=== PATIENT | female | born 1935 | race Caucasian/White ===

== ENCOUNTER 2016-12-16 02:58 | Emergency (ER) | payer MEDICARE ==
[~2016-12-16] VITALS: Ht 154.9 cm; Wt 79.1 kg
[~2016-12-16 02:58] MED LIST: ALBU8.5H IH; AMIO200T44 PO; APIX5TAB PO; ASPI-1093 PO; ATOR40TA28 PO; CHOL200016 PO; FURO40 PO; KDUR10 PO; LEVAHFA IH; LISI-662 PO; METO-325 PO; PRED20 PO; UBID400C6 PO; VITA400T7 PO; [UNRECOGNIZED DRUG - CODE] PO
[2016-12-16 04:01] LABS: BASOPHILS % (AUTO) 0.2 % (0.0-2.0); EOSINOPHILS % (AUTO) 0.5 % (1.0-6.0); HEMATOCRIT 41.1 % (36-46); HEMOGLOBIN 13.1 g/dL (12.0-16.0); LYMPHOCYTES # (AUTO) 1.7 K/uL (1.0-4.8); LYMPHOCYTES % (AUTO) 17.5 % (22.0-44.0); MEAN CORPUSCULAR HGB CONC 31.9 G/dL (31.0-37.0); MEAN CORPUSCULAR VOLUME 94 fL (80-100); MONOCYTES # (AUTO) 0.6 K/uL (0.1-1.0); MONOCYTES % (AUTO) 6.6 % (2.0-9.0); NEUTROPHILS # (AUTO) 7.4 K/uL (1.8-7.7); NEUTROPHILS % (AUTO) 75.2 % (40.0-70.0); PLATELET COUNT (AUTO) 202 K/uL (150-450); RED BLOOD CELL COUNT(AUTO) 4.36 MIL/uL (4.00-5.20); RED CELL DISTRIBUTION WIDTH 16.1 % (11.5-14.5); WHITE BLOOD COUNT (AUTO) 9.8 K/uL (4.5-11.0)
[2016-12-16 04:11] LABS: CALCIUM, TOTAL 8.6 mg/dL (8.8-10.5); CREATININE 0.95 mg/dL (0.60-1.30); POTASSIUM 3.4 mmol/L (3.5-5.1)
[2016-12-16 04:17] LABS: ALBUMIN 3.4 g/dL (3.4-5.0); BILIRUBIN,TOTAL 0.5 mg/dL (0.1-1.0); TOTAL PROTEIN, SERUM 6.6 g/dL (6.4-8.2)
[2016-12-16 05:51] VITALS: BP 119/69
== END 2016-12-16 06:14 | disposition home or self-care (01) ==
LOC: EMS 02:59
DX: I11.0 Hypertensive heart disease with heart failure (principal); I50.9 Heart failure, unspecified; F41.9 Anxiety disorder, unspecified; I25.10 Atherosclerotic heart disease of native coronary artery without angina pectoris; E11.9 Type 2 diabetes mellitus without complications; E78.00 Pure hypercholesterolemia, unspecified; Z88.0 Allergy status to penicillin; Z91.013 Allergy to seafood; Z91.018 Allergy to other foods
CPT/HCPCS: 93005; 99285

== ENCOUNTER 2017-03-30 18:08 | Inpatient (IN) | payer MEDICARE ==
[~2017-03-30] VITALS: Ht 165.1 cm; Wt 83.7 kg
[2017-03-30] MEDS ORDERED: SPIR25 PO (18:31)
[2017-03-30] MEDS ORDERED: LEVO25TA9 PO (18:31)
[2017-03-30 18:32] LABS: GLUCOSE,POINT OF CARE 183 MG/DL (70-110)
[2017-03-30 19:26] LABS: BASOPHILS % (AUTO) 0.4 % (0.0-2.0); EOSINOPHILS % (AUTO) 0.2 % (1.0-6.0); HEMATOCRIT 39.1 % (36-46); HEMOGLOBIN 12.1 g/dL (12.0-16.0); LYMPHOCYTES # (AUTO) 0.7 K/uL (1.0-4.8); LYMPHOCYTES % (AUTO) 8.5 % (22.0-44.0); MEAN CORPUSCULAR HEMOGLOBIN 27.8 pg (26.0-34.0); MEAN CORPUSCULAR VOLUME 90 fL (80-100); MONOCYTES # (AUTO) 0.8 K/uL (0.1-1.0); MONOCYTES % (AUTO) 9.7 % (2.0-9.0); NEUTROPHILS # (AUTO) 6.9 K/uL (1.8-7.7); NEUTROPHILS % (AUTO) 81.2 % (40.0-70.0); PLATELET COUNT (AUTO) 162 K/uL (150-450); RED BLOOD CELL COUNT(AUTO) 4.37 MIL/uL (4.00-5.20); RED CELL DISTRIBUTION WIDTH 16.9 % (11.5-14.5); WHITE BLOOD COUNT (AUTO) 8.5 K/uL (4.5-11.0)
[2017-03-30 19:42] LABS: CREATININE 1.39 mg/dL (0.60-1.30); POTASSIUM 5.2 mmol/L (3.5-5.1)
[2017-03-30 19:46] LABS: ALBUMIN 3.7 g/dL (3.4-5.0); BILIRUBIN,TOTAL 0.6 mg/dL (0.1-1.0); TOTAL PROTEIN, SERUM 7.2 g/dL (6.4-8.2)
[2017-03-30] MEDS ORDERED: FUROSEMIDE 40 MG/4 ML VIAL IVP ONE (22:15)
[2017-03-30] MEDS ORDERED: ACETAMINOPHEN 325 MG TABLET PO PRN (23:30)
[2017-03-30] MEDS ORDERED: ONDANSETRON HCL 4 MG/2 ML VIAL IVP PRN (23:30)
[2017-03-30] MEDS ORDERED: NITROGLYCERIN 2% (1 GM=INCH) PACKET TP ONE (23:30)
[2017-03-30] MEDS ORDERED: 0.9% SODIUM CHLORIDE 10 ML SYRINGE IVP PRN (23:30)
[2017-03-31] VITALS (7 sets, daily range): BP systolic 100–119; BP diastolic 50–59
[2017-03-31] MEDS ORDERED: PNEUMOCOCCAL VACCINE POLYVALENT 0.5 ML VIAL [PPSV23] IM ONE (03:30)
[2017-03-31 06:58] LABS: BASOPHILS % (AUTO) 0.4 % (0.0-2.0); EOSINOPHILS % (AUTO) 0 % (1.0-6.0); HEMATOCRIT 36.8 % (36-46); HEMOGLOBIN 11.6 g/dL (12.0-16.0); LYMPHOCYTES # (AUTO) 0.8 K/uL (1.0-4.8); LYMPHOCYTES % (AUTO) 9.5 % (22.0-44.0); MEAN CORPUSCULAR HEMOGLOBIN 28.1 pg (26.0-34.0); MEAN CORPUSCULAR HGB CONC 31.5 G/dL (31.0-37.0); MEAN CORPUSCULAR VOLUME 89 fL (80-100); MONOCYTES % (AUTO) 11.3 % (2.0-9.0); NEUTROPHILS # (AUTO) 6.7 K/uL (1.8-7.7); NEUTROPHILS % (AUTO) 78.8 % (40.0-70.0); PLATELET COUNT (AUTO) 145 K/uL (150-450); RED BLOOD CELL COUNT(AUTO) 4.13 MIL/uL (4.00-5.20); RED CELL DISTRIBUTION WIDTH 17.5 % (11.5-14.5); WHITE BLOOD COUNT (AUTO) 8.5 K/uL (4.5-11.0)
[2017-03-31 07:14] LABS: ALBUMIN 3.5 g/dL (3.4-5.0); BILIRUBIN,TOTAL 0.7 mg/dL (0.1-1.0); CALCIUM, TOTAL 8.6 mg/dL (8.8-10.5); CREATININE 1.33 mg/dL (0.60-1.30); POTASSIUM 4.1 mmol/L (3.5-5.1); TOTAL PROTEIN, SERUM 6.8 g/dL (6.4-8.2)
[2017-03-31] MEDS: IPRATROPIUM BROMIDE 0.5 MG/2.5 ML NEB SOLUTION NEB PRN (08:41)
[2017-03-31] MEDS: ALBUTEROL SULFATE 2.5 MG/0.5 ML NEB SOLUTION NEB SCH ×3 (08:41→21:26)
[2017-03-31] MEDS ORDERED: 0.9% SODIUM CHLORIDE 5 ML NEB SOLUTION NEB ONE (14:08)
[2017-03-31] MEDS ORDERED: HYDROCODONE/ACETAMINOPHEN 5-325 MG TABLET PO PRN (14:45)
[2017-03-31] MEDS ORDERED: DEXTROSE 50%-WATER 25 GM/50 ML SYRINGE IVP PRN (14:45)
[2017-03-31] MEDS ORDERED: AMIO200T44 PO (15:03)
[2017-03-31] MEDS ORDERED: SPIR25 PO (15:03)
[2017-03-31] MEDS ORDERED: NYST15PO4 TP (15:03)
[2017-03-31] MEDS: NYSTATIN 15 GM POWDER BOTTLE TP SCH (20:29)
[2017-03-31] MEDS: APIXABAN 5 MG TABLET PO SCH (20:29)
[2017-03-31] MEDS: FUROSEMIDE 40 MG/4 ML VIAL IVP SCH (20:29)
[2017-03-31] MEDS: INSULIN ASPART 100 UNITS/ML SQ PRN (20:56)
[2017-03-31] MEDS ORDERED: FUROSEMIDE 40 MG TABLET PO SCH (21:00)
[2017-04-01] VITALS (7 sets, daily range): BP systolic 101–130; BP diastolic 50–64
[2017-04-01] MEDS: IPRATROPIUM BROMIDE 0.5 MG/2.5 ML NEB SOLUTION NEB PRN ×2 (01:57→19:41)
[2017-04-01] MEDS: ALBUTEROL SULFATE 2.5 MG/0.5 ML NEB SOLUTION NEB SCH ×3 (01:57→19:41)
[2017-04-01] MEDS: LEVOTHYROXINE SODIUM 25 MCG TABLET PO SCH (05:58)
[2017-04-01 06:46] LABS: BASOPHILS % (AUTO) 0.3 % (0.0-2.0); EOSINOPHILS % (AUTO) 0.7 % (1.0-6.0); HEMATOCRIT 37.5 % (36-46); HEMOGLOBIN 11.8 g/dL (12.0-16.0); LYMPHOCYTES # (AUTO) 0.8 K/uL (1.0-4.8); LYMPHOCYTES % (AUTO) 8.7 % (22.0-44.0); MEAN CORPUSCULAR HEMOGLOBIN 28.3 pg (26.0-34.0); MEAN CORPUSCULAR HGB CONC 31.6 G/dL (31.0-37.0); MEAN CORPUSCULAR VOLUME 89 fL (80-100); MONOCYTES # (AUTO) 0.7 K/uL (0.1-1.0); MONOCYTES % (AUTO) 8.5 % (2.0-9.0); NEUTROPHILS # (AUTO) 7.2 K/uL (1.8-7.7); NEUTROPHILS % (AUTO) 81.8 % (40.0-70.0); PLATELET COUNT (AUTO) 141 K/uL (150-450); RED BLOOD CELL COUNT(AUTO) 4.19 MIL/uL (4.00-5.20); RED CELL DISTRIBUTION WIDTH 17.8 % (11.5-14.5); WHITE BLOOD COUNT (AUTO) 8.8 K/uL (4.5-11.0)
[2017-04-01 07:18] LABS: CALCIUM, TOTAL 8.6 mg/dL (8.8-10.5); CREATININE 1.23 mg/dL (0.60-1.30); MAGNESIUM 1.9 mg/dL (1.80-2.40); POTASSIUM 3.9 mmol/L (3.5-5.1)
[2017-04-01] MEDS ORDERED: 0.9% SODIUM CHLORIDE 5 ML NEB SOLUTION NEB ONE ×2 (07:40→13:32)
[2017-04-01] MEDS: FUROSEMIDE 40 MG/4 ML VIAL IVP SCH ×2 (08:14→21:39)
[2017-04-01] MEDS: POTASSIUM CHLORIDE 10 MEQ ER TABLET PO SCH (08:14)
[2017-04-01] MEDS: APIXABAN 5 MG TABLET PO SCH ×2 (08:14→21:39)
[2017-04-01] MEDS: AMIODARONE HCL 200 MG TABLET PO SCH (08:14)
[2017-04-01] MEDS: UBIDECARENONE 100 MG CAPSULE PO SCH (08:15)
[2017-04-01] MEDS: CHOLECALCIFEROL (VIT D3) 2,000 UNITS TABLET PO SCH (08:15)
[2017-04-01] MEDS: SPIRONOLACTONE 25 MG TABLET PO SCH (08:15)
[2017-04-01] MEDS: LISINOPRIL 20 MG TABLET PO SCH (08:15)
[2017-04-01] MEDS: CYANOCOBALAMIN 500 MCG TABLET PO SCH (08:18)
[2017-04-01] MEDS: NYSTATIN 15 GM POWDER BOTTLE TP SCH ×2 (08:27→21:40)
[2017-04-01] MEDS: VITAMIN E 400 UNITS CAPSULE PO SCH (08:27)
[2017-04-01] MEDS: INSULIN ASPART 100 UNITS/ML SQ PRN ×2 (11:37→21:54)
[2017-04-01] MEDS: HYDROCODONE/ACETAMINOPHEN 5-325 MG TABLET PO PRN ×2 (12:57→21:39)
[2017-04-02] MEDS: ALBUTEROL SULFATE 2.5 MG/0.5 ML NEB SOLUTION NEB SCH ×4 (02:23→20:05)
[2017-04-02] MEDS ORDERED: 0.9% SODIUM CHLORIDE 5 ML NEB SOLUTION NEB ONE ×3 (02:23→14:33)
[2017-04-02 04:15] VITALS: BP 102/50
[2017-04-02] MEDS: LEVOTHYROXINE SODIUM 25 MCG TABLET PO SCH (06:04)
[2017-04-02 06:38] LABS: BASOPHILS % (AUTO) 0.3 % (0.0-2.0); EOSINOPHILS % (AUTO) 1.2 % (1.0-6.0); HEMATOCRIT 35.7 % (36-46); HEMOGLOBIN 11.1 g/dL (12.0-16.0); LYMPHOCYTES # (AUTO) 0.7 K/uL (1.0-4.8); LYMPHOCYTES % (AUTO) 9.1 % (22.0-44.0); MEAN CORPUSCULAR HEMOGLOBIN 27.7 pg (26.0-34.0); MEAN CORPUSCULAR VOLUME 89 fL (80-100); MONOCYTES # (AUTO) 0.7 K/uL (0.1-1.0); MONOCYTES % (AUTO) 9.4 % (2.0-9.0); NEUTROPHILS # (AUTO) 6.3 K/uL (1.8-7.7); PLATELET COUNT (AUTO) 133 K/uL (150-450); RED CELL DISTRIBUTION WIDTH 18.1 % (11.5-14.5); WHITE BLOOD COUNT (AUTO) 7.8 K/uL (4.5-11.0)
[2017-04-02 06:54] LABS: ALANINE AMINOTRANSFERASE 35 U/L (12-78); ALBUMIN 3.3 g/dL (3.4-5.0); ANION GAP 9 mmol/L (8-16); ASPARTATE AMINOTRANSFERASE 34 U/L (15-37); BILIRUBIN,TOTAL 0.8 mg/dL (0.1-1.0); CALCIUM, TOTAL 8.5 mg/dL (8.8-10.5); CARBON DIOXIDE 27 mmol/L (22-29); CHLORIDE 100 mmol/L (98-107); CREATININE 1.31 mg/dL (0.60-1.30); GLOMERULAR FILTR. RATE CALC 39 mL/min (>60); POTASSIUM 4.1 mmol/L (3.5-5.1); SODIUM SERUM 136 mmol/L (136-145); TOTAL PROTEIN, SERUM 6.6 g/dL (6.4-8.2); UREA NITROGEN, BLOOD 39 mg/dL (7-18)
[2017-04-02 07:27] VITALS: BP 91/50
[2017-04-02] MEDS: AMIODARONE HCL 200 MG TABLET PO SCH (07:54)
[2017-04-02] MEDS: SPIRONOLACTONE 25 MG TABLET PO SCH (07:54)
[2017-04-02] MEDS: APIXABAN 5 MG TABLET PO SCH ×2 (07:54→20:40)
[2017-04-02] MEDS: CHOLECALCIFEROL (VIT D3) 2,000 UNITS TABLET PO SCH (07:55)
[2017-04-02] MEDS: NYSTATIN 15 GM POWDER BOTTLE TP SCH ×2 (07:55→20:40)
[2017-04-02] MEDS: UBIDECARENONE 100 MG CAPSULE PO SCH (07:55)
[2017-04-02] MEDS: CYANOCOBALAMIN 500 MCG TABLET PO SCH (07:55)
[2017-04-02] MEDS: LISINOPRIL 20 MG TABLET PO SCH (07:55)
[2017-04-02] MEDS: POTASSIUM CHLORIDE 10 MEQ ER TABLET PO SCH (07:55)
[2017-04-02] MEDS: VITAMIN E 400 UNITS CAPSULE PO SCH (07:55)
[2017-04-02 08:47] LABS: DIGOXIN < 0.20 ng/mL (0.90-2.00)
[2017-04-02] MEDS: FUROSEMIDE 40 MG/4 ML VIAL IVP SCH ×2 (09:00→20:40)
[2017-04-02 11:33] VITALS: BP 98/58
[2017-04-02] MEDS: INSULIN ASPART 100 UNITS/ML SQ PRN ×2 (11:59→20:50)
[2017-04-02] MEDS ORDERED: 0.9% SODIUM CHLORIDE 10 ML SYRINGE IVP PRN (12:15)
[2017-04-02] MEDS: HYDROCODONE/ACETAMINOPHEN 5-325 MG TABLET PO PRN (13:06)
[2017-04-02 13:38] LABS: GLUCOSE,POINT OF CARE 127 MG/DL (70-110)
[2017-04-02 13:38] LABS: GLUCOSE,POINT OF CARE 98 MG/DL (70-110)
[2017-04-02 13:38] LABS: GLUCOSE,POINT OF CARE 139 MG/DL (70-110)
[2017-04-02 13:38] LABS: GLUCOSE COMMENT 1 Received Meds; GLUCOSE,POINT OF CARE 206 MG/DL (70-110)
[2017-04-02 13:38] LABS: GLUCOSE COMMENT 1 Received Meds; GLUCOSE,POINT OF CARE 172 MG/DL (70-110)
[2017-04-02 13:42] LABS: GLUCOSE COMMENT 1 Received Meds; GLUCOSE,POINT OF CARE 170 MG/DL (70-110)
[2017-04-02 13:42] LABS: GLUCOSE,POINT OF CARE 107 MG/DL (70-110)
[2017-04-02 13:42] LABS: GLUCOSE COMMENT 1 Received Meds; GLUCOSE,POINT OF CARE 147 MG/DL (70-110)
[2017-04-02 15:11] VITALS: BP 114/53
[2017-04-02 19:33] VITALS: BP 102/50
[2017-04-02] MEDS: IPRATROPIUM BROMIDE 0.5 MG/2.5 ML NEB SOLUTION NEB PRN (20:05)
[2017-04-02 20:47] LABS: GLUCOSE,POINT OF CARE 134 MG/DL (70-110)
[2017-04-02 23:32] VITALS: BP 139/60
[2017-04-03] MEDS: ALBUTEROL SULFATE 2.5 MG/0.5 ML NEB SOLUTION NEB SCH ×4 (02:07→20:29)
[2017-04-03] MEDS: IPRATROPIUM BROMIDE 0.5 MG/2.5 ML NEB SOLUTION NEB PRN ×4 (02:07→20:29)
[2017-04-03 04:25] VITALS: BP 101/50
[2017-04-03] MEDS: LEVOTHYROXINE SODIUM 25 MCG TABLET PO SCH (06:21)
[2017-04-03 06:47] LABS: BASOPHILS % (AUTO) 0.3 % (0.0-2.0); EOSINOPHILS % (AUTO) 0 % (1.0-6.0); HEMOGLOBIN 11.7 g/dL (12.0-16.0); LYMPHOCYTES # (AUTO) 0.7 K/uL (1.0-4.8); MEAN CORPUSCULAR HEMOGLOBIN 28.2 pg (26.0-34.0); MEAN CORPUSCULAR HGB CONC 31.6 G/dL (31.0-37.0); MEAN CORPUSCULAR VOLUME 89 fL (80-100); MONOCYTES # (AUTO) 0.9 K/uL (0.1-1.0); MONOCYTES % (AUTO) 10.4 % (2.0-9.0); NEUTROPHILS # (AUTO) 7.1 K/uL (1.8-7.7); NEUTROPHILS % (AUTO) 81.3 % (40.0-70.0); PLATELET COUNT (AUTO) 150 K/uL (150-450); RED BLOOD CELL COUNT(AUTO) 4.15 MIL/uL (4.00-5.20); RED CELL DISTRIBUTION WIDTH 18.3 % (11.5-14.5); WHITE BLOOD COUNT (AUTO) 8.7 K/uL (4.5-11.0)
[2017-04-03 07:04] LABS: CALCIUM, TOTAL 8.9 mg/dL (8.8-10.5); CREATININE 1.25 mg/dL (0.60-1.30); MAGNESIUM 2.1 mg/dL (1.80-2.40); POTASSIUM 4.5 mmol/L (3.5-5.1)
[2017-04-03 07:47] VITALS: BP 110/55
[2017-04-03] MEDS: POTASSIUM CHLORIDE 10 MEQ ER TABLET PO SCH (07:52)
[2017-04-03] MEDS: SPIRONOLACTONE 25 MG TABLET PO SCH (07:52)
[2017-04-03] MEDS: APIXABAN 5 MG TABLET PO SCH ×2 (07:52→21:02)
[2017-04-03] MEDS: CYANOCOBALAMIN 500 MCG TABLET PO SCH (07:52)
[2017-04-03] MEDS: CHOLECALCIFEROL (VIT D3) 2,000 UNITS TABLET PO SCH (07:53)
[2017-04-03] MEDS: UBIDECARENONE 100 MG CAPSULE PO SCH (07:53)
[2017-04-03] MEDS: HYDROCODONE/ACETAMINOPHEN 5-325 MG TABLET PO PRN ×2 (07:53→21:12)
[2017-04-03] MEDS: VITAMIN E 400 UNITS CAPSULE PO SCH (07:53)
[2017-04-03] MEDS: AMIODARONE HCL 200 MG TABLET PO SCH (07:53)
[2017-04-03] MEDS: NYSTATIN 15 GM POWDER BOTTLE TP SCH ×2 (08:01→21:00)
[2017-04-03] MEDS: LISINOPRIL 20 MG TABLET PO SCH (08:01)
[2017-04-03] MEDS: FUROSEMIDE 40 MG/4 ML VIAL IVP SCH ×2 (08:42→21:02)
[2017-04-03 09:35] LABS: RBC MORPHOLOGY COMMENT ABNORMAL RBC MORPH
[2017-04-03 11:03] VITALS: BP 105/52
[2017-04-03 12:49] LABS: GLUCOSE,POINT OF CARE 130 MG/DL (70-110)
[2017-04-03 12:49] LABS: GLUCOSE,POINT OF CARE 111 MG/DL (70-110)
[2017-04-03 12:49] LABS: GLUCOSE COMMENT 1 Received Meds; GLUCOSE,POINT OF CARE 149 MG/DL (70-110)
[2017-04-03 15:18] VITALS: BP 107/56
[2017-04-03 19:41] VITALS: BP 113/58
[2017-04-03] MEDS: INSULIN ASPART 100 UNITS/ML SQ PRN (21:13)
[2017-04-04 00:09] VITALS: BP 114/68
[2017-04-04] MEDS: IPRATROPIUM BROMIDE 0.5 MG/2.5 ML NEB SOLUTION NEB PRN ×2 (02:21→08:46)
[2017-04-04] MEDS: ALBUTEROL SULFATE 2.5 MG/0.5 ML NEB SOLUTION NEB SCH ×3 (02:21→14:08)
[2017-04-04 04:35] VITALS: BP 110/54
[2017-04-04] MEDS: LEVOTHYROXINE SODIUM 25 MCG TABLET PO SCH (06:34)
[2017-04-04 07:17] LABS: GLUCOSE,POINT OF CARE 132 MG/DL (70-110)
[2017-04-04 07:17] LABS: GLUCOSE COMMENT 1 Received Meds; GLUCOSE,POINT OF CARE 159 MG/DL (70-110)
[2017-04-04 07:17] LABS: GLUCOSE,POINT OF CARE 139 MG/DL (70-110)
[2017-04-04 07:25] VITALS: BP 107/58
[2017-04-04] MEDS: FUROSEMIDE 40 MG/4 ML VIAL IVP SCH (09:05)
[2017-04-04] MEDS: UBIDECARENONE 100 MG CAPSULE PO SCH (09:06)
[2017-04-04] MEDS: SPIRONOLACTONE 25 MG TABLET PO SCH (09:07)
[2017-04-04] MEDS: HYDROCODONE/ACETAMINOPHEN 5-325 MG TABLET PO PRN (09:07)
[2017-04-04] MEDS: APIXABAN 5 MG TABLET PO SCH (09:07)
[2017-04-04] MEDS: VITAMIN E 400 UNITS CAPSULE PO SCH (09:07)
[2017-04-04] MEDS: AMIODARONE HCL 200 MG TABLET PO SCH (09:07)
[2017-04-04] MEDS: CHOLECALCIFEROL (VIT D3) 2,000 UNITS TABLET PO SCH (09:08)
[2017-04-04] MEDS: LISINOPRIL 20 MG TABLET PO SCH (09:08)
[2017-04-04] MEDS: NYSTATIN 15 GM POWDER BOTTLE TP SCH (09:08)
[2017-04-04 11:20] VITALS: BP 122/70
[2017-04-04] MEDS: POTASSIUM CHLORIDE 10 MEQ ER TABLET PO SCH (11:24)
[2017-04-04] MEDS: CYANOCOBALAMIN 500 MCG TABLET PO SCH (11:25)
[2017-04-04] MEDS ORDERED: 0.9% SODIUM CHLORIDE 5 ML NEB SOLUTION NEB ONE (14:07)
[2017-04-04 15:16] VITALS: BP 114/52
[2017-04-04] MEDS ORDERED: AUD NEB (15:32)
[2017-04-04] MEDS ORDERED: HYDR-3965 PO ×2 (15:34→15:35)
[2017-04-04] MEDS ORDERED: INSNOV SQ (15:46)
[2017-04-04] MEDS ORDERED: IPRNEB IH (15:50)
[2017-04-04 16:52] LABS: GLUCOSE,POINT OF CARE 137 MG/DL (70-110)
== END 2017-04-04 18:55 | disposition home or self-care (01) | DRG 291 ==
LOC: EMS 18:12 → 5N 23:00
PROVIDERS: ADMIT Family Medicine; ATTEND Family Medicine
DX: I13.0 Hypertensive heart and chronic kidney disease with heart failure and stage 1 through stage 4 chronic kidney disease, or unspecified chronic kidney disease (principal); I50.43 Acute on chronic combined systolic (congestive) and diastolic (congestive) heart failure; N17.9 Acute kidney failure, unspecified; I11.0 Hypertensive heart disease with heart failure; I42.9 Cardiomyopathy, unspecified; I50.9 Heart failure, unspecified; I48.91 Unspecified atrial fibrillation; E78.5 Hyperlipidemia, unspecified; I25.10 Atherosclerotic heart disease of native coronary artery without angina pectoris; E78.00 Pure hypercholesterolemia, unspecified; E87.5 Hyperkalemia; M19.90 Unspecified osteoarthritis, unspecified site; I87.2 Venous insufficiency (chronic) (peripheral); I48.0 Paroxysmal atrial fibrillation; G47.00 Insomnia, unspecified; Z95.2 Presence of prosthetic heart valve; Z95.0 Presence of cardiac pacemaker; Z88.0 Allergy status to penicillin; Z91.013 Allergy to seafood; Z91.018 Allergy to other foods; Z79.899 Other long term (current) drug therapy; Z79.01 Long term (current) use of anticoagulants; Z90.49 Acquired absence of other specified parts of digestive tract; Z95.1 Presence of aortocoronary bypass graft; E11.9 Type 2 diabetes mellitus without complications; N18.3 Chronic kidney disease, stage 3 (moderate)
CPT/HCPCS: 82962; 83735; 93005; 93306; 94640; 96374; 97116; 97162; 97166; 97530; 99285; J1940

== ENCOUNTER 2017-08-15 00:21 | Inpatient (IN) | payer MEDICARE ==
[~2017-08-15] VITALS: Ht 162.6 cm; Wt 72.9 kg
[~2017-08-15 00:21] MED LIST changes: -ALBU8.5H IH; -ASPI-1093 PO; -ATOR40TA28 PO; +CYAN100010 PO; +HYDR-4061 PO; +IPRNEB IH; -LEVAHFA IH; +LEVO25TA9 PO; -METO-325 PO; +NYST15PO4 TP; -PRED20 PO; +SPIR25 PO; -[UNRECOGNIZED DRUG - CODE] PO
[2017-08-15 00:32] LABS: GLUCOSE,POINT OF CARE 150 MG/DL (70-110)
[2017-08-15] MEDS ORDERED: METO25 PO (00:33)
[2017-08-15] MEDS ORDERED: ASPI81 PO (00:33)
[2017-08-15] MEDS ORDERED: ATOR20TA86 PO (00:33)
[2017-08-15 00:53] LABS: EOSINOPHILS # (AUTO) 0.04 K/uL (0.00-0.70); EOSINOPHILS % (AUTO) 0.28 % (1.0-6.0); HEMATOCRIT 37.7 % (36-46); HEMOGLOBIN 12.3 g/dL (12.0-16.0); LYMPHOCYTES # (AUTO) 0.7 K/uL (1.0-4.8); LYMPHOCYTES % (AUTO) 4.9 % (22.0-44.0); MEAN CORPUSCULAR HEMOGLOBIN 30.1 pg (26.0-34.0); MEAN CORPUSCULAR HGB CONC 32.6 G/dL (31.0-37.0); MEAN CORPUSCULAR VOLUME 92 fL (80-100); MONOCYTES # (AUTO) 0.9 K/uL (0.1-1.0); MONOCYTES % (AUTO) 6.5 % (2.0-9.0); NEUTROPHILS # (AUTO) 11.9 K/uL (1.8-7.7); PLATELET COUNT (AUTO) 257 K/uL (150-450); RED BLOOD CELL COUNT(AUTO) 4.08 MIL/uL (4.00-5.20); RED CELL DISTRIBUTION WIDTH 18.4 % (11.5-14.5); WHITE BLOOD COUNT (AUTO) 13.5 K/uL (4.5-11.0)
[2017-08-15 00:55] LABS: NEUTROPHILS % (AUTO) 88.3 % (40.0-70.0)
[2017-08-15] MEDS ORDERED: SODIUM CHLORIDE 0.9% 1,000 ML IV ONE (01:00)
[2017-08-15] MEDS ORDERED: VANCOMYCIN HCL 1.5 GM in DEXTROSE 5%-WATER 250 ML IV ONE (01:00)
[2017-08-15 01:03] LABS: ANION GAP 11 mmol/L (8-16); CALCIUM, TOTAL 9.1 mg/dL (8.8-10.5); CARBON DIOXIDE 23 mmol/L (22-29); CHLORIDE 95 mmol/L (98-107); CREATININE 1.74 mg/dL (0.60-1.30); GLOMERULAR FILTR. RATE CALC 28 mL/min (>60); SODIUM SERUM 129 mmol/L (136-145); UREA NITROGEN, BLOOD 43 mg/dL (7-18)
[2017-08-15 01:09] LABS: ALANINE AMINOTRANSFERASE 36 U/L (12-78); ASPARTATE AMINOTRANSFERASE 36 U/L (15-37); BILIRUBIN,TOTAL 1.3 mg/dL (0.1-1.0); CREATINE KINASE, TOTAL 22 U/L (26-192); TOTAL PROTEIN, SERUM 8.2 g/dL (6.4-8.2)
[2017-08-15 01:12] LABS: RBC MORPHOLOGY COMMENT ABNORMAL RBC MORPH
[2017-08-15 01:17] LABS: B-TYPE NATRIURETIC PEPTIDE 4010 pg/mL (0-100)
[2017-08-15] MEDS ORDERED: 0.9% SODIUM CHLORIDE 10 ML SYRINGE IVP PRN (01:30)
[2017-08-15] MEDS ORDERED: ONDANSETRON HCL 4 MG/2 ML VIAL IVP PRN ×2 (01:30→07:00)
[2017-08-15] MEDS ORDERED: ACETAMINOPHEN 325 MG TABLET PO PRN (01:30)
[2017-08-15] MEDS ORDERED: FUROSEMIDE 40 MG/4 ML VIAL IVP ONE (01:30)
[2017-08-15 03:04] VITALS: BP 124/64
[2017-08-15 04:52] VITALS: BP 107/71
[2017-08-15 06:57] LABS: GLUCOSE, URINE (UA) NEGATIVE (NEGATIVE); KETONES,URINE NEGATIVE (NEGATIVE); LEUKOCYTE ESTERASE ,URINE NEGATIVE (NEGATIVE); PH,URINE 5.5 (5.0-8.0); PROTEIN,URINE NEGATIVE (NEGATIVE)
[2017-08-15] MEDS ORDERED: DEXTROSE 50%-WATER 25 GM/50 ML SYRINGE IVP PRN (07:00)
[2017-08-15 07:35] VITALS: BP 100/57
[2017-08-15 07:35] LABS: ADD UA MICROSCOPIC YES; APPEARANCE,URINE HAZY (CLEAR); OCCULT BLOOD,URINE SMALL (NEGATIVE)
[2017-08-15 07:36] LABS: AMORPHOUS SEDIMENT,UR Few /LPF (None Seen); SQUAMOUS EPITHELIAL CELL,UR Moderate /LPF (None Seen); WBC,URINE 0-2 /HPF (0-5)
[2017-08-15 08:06] LABS: BASOPHILS # (AUTO) 0.03 K/uL (0.00-0.20); BASOPHILS % (AUTO) 0.2 % (0.0-2.0); EOSINOPHILS # (AUTO) 0.03 K/uL (0.00-0.70); HEMATOCRIT 35.4 % (36-46); HEMOGLOBIN 11.6 g/dL (12.0-16.0); LYMPHOCYTES # (AUTO) 0.7 K/uL (1.0-4.8); LYMPHOCYTES % (AUTO) 5.2 % (22.0-44.0); MEAN CORPUSCULAR HEMOGLOBIN 30.1 pg (26.0-34.0); MEAN CORPUSCULAR HGB CONC 32.8 G/dL (31.0-37.0); MEAN CORPUSCULAR VOLUME 92 fL (80-100); MONOCYTES # (AUTO) 0.9 K/uL (0.1-1.0); MONOCYTES % (AUTO) 6.9 % (2.0-9.0); NEUTROPHILS # (AUTO) 11.1 K/uL (1.8-7.7); PLATELET COUNT (AUTO) 218 K/uL (150-450); RED BLOOD CELL COUNT(AUTO) 3.86 MIL/uL (4.00-5.20); RED CELL DISTRIBUTION WIDTH 18.3 % (11.5-14.5); WHITE BLOOD COUNT (AUTO) 12.7 K/uL (4.5-11.0)
[2017-08-15 08:07] LABS: NEUTROPHILS % (AUTO) 87.5 % (40.0-70.0)
[2017-08-15 08:18] LABS: CALCIUM, TOTAL 8.5 mg/dL (8.8-10.5); CREATININE 1.71 mg/dL (0.60-1.30); POTASSIUM 4.7 mmol/L (3.5-5.1)
[2017-08-15] MEDS: HEPARIN SODIUM,PORCINE 5,000 UNITS/ML VIAL SQ SCH ×3 (09:15→23:58)
[2017-08-15] MEDS: FUROSEMIDE 40 MG/4 ML VIAL IVP SCH ×2 (09:15→20:19)
[2017-08-15] MEDS: APIXABAN 5 MG TABLET PO SCH ×2 (09:17→20:17)
[2017-08-15] MEDS: POTASSIUM CHLORIDE 10 MEQ ER TABLET PO SCH (09:17)
[2017-08-15] MEDS: ASPIRIN 81 MG CHEWABLE TABLET PO SCH (09:17)
[2017-08-15] MEDS: LEVOFLOXACIN 500 MG TABLET PO SCH (09:18)
[2017-08-15] MEDS: ATORVASTATIN CALCIUM 20 MG TABLET PO SCH (09:18)
[2017-08-15] MEDS: NYSTATIN 15 GM POWDER BOTTLE TP SCH ×2 (09:19→20:19)
[2017-08-15] MEDS: METOPROLOL TARTRATE 25 MG TABLET PO SCH (09:19)
[2017-08-15] MEDS: LISINOPRIL 20 MG TABLET PO SCH (09:20)
[2017-08-15 09:44] LABS: RBC MORPHOLOGY COMMENT ABNORMAL RBC MORPH
[2017-08-15 11:44] VITALS: BP 108/67
[2017-08-15] MEDS: AMIODARONE HCL 200 MG TABLET PO SCH (12:17)
[2017-08-15] MEDS: INSULIN ASPART 100 UNITS/ML SQ PRN (12:18)
[2017-08-15 15:32] VITALS: BP 115/83
[2017-08-15 19:46] VITALS: BP 108/57
[2017-08-15] MEDS: DiphenhydrAMINE HCL 25 MG CAPSULE PO PRN (20:17)
[2017-08-15 20:28] LABS: GLUCOSE COMMENT 1 Received Meds; GLUCOSE,POINT OF CARE 159 MG/DL (70-110)
[2017-08-16] VITALS: BP 127/66
[2017-08-16 01:28] LABS: GLUCOSE,POINT OF CARE 118 MG/DL (70-110)
[2017-08-16 04:00] VITALS: BP 101/73
[2017-08-16 06:25] LABS: EOSINOPHILS # (AUTO) 0.03 K/uL (0.00-0.70); EOSINOPHILS % (AUTO) 0.23 % (1.0-6.0); HEMATOCRIT 37.4 % (36-46); HEMOGLOBIN 12.2 g/dL (12.0-16.0); LYMPHOCYTES # (AUTO) 0.6 K/uL (1.0-4.8); LYMPHOCYTES % (AUTO) 5.1 % (22.0-44.0); MEAN CORPUSCULAR HEMOGLOBIN 30.1 pg (26.0-34.0); MEAN CORPUSCULAR HGB CONC 32.7 G/dL (31.0-37.0); MEAN CORPUSCULAR VOLUME 92 fL (80-100); MONOCYTES # (AUTO) 0.8 K/uL (0.1-1.0); MONOCYTES % (AUTO) 6.2 % (2.0-9.0); NEUTROPHILS # (AUTO) 10.8 K/uL (1.8-7.7); PLATELET COUNT (AUTO) 245 K/uL (150-450); RED BLOOD CELL COUNT(AUTO) 4.06 MIL/uL (4.00-5.20); RED CELL DISTRIBUTION WIDTH 18.3 % (11.5-14.5); WHITE BLOOD COUNT (AUTO) 12.2 K/uL (4.5-11.0)
[2017-08-16 06:46] LABS: NEUTROPHILS % (AUTO) 88.5 % (40.0-70.0)
[2017-08-16 06:48] LABS: ALBUMIN 2.8 g/dL (3.4-5.0); BILIRUBIN,TOTAL 1.4 mg/dL (0.1-1.0); CREATININE 1.85 mg/dL (0.60-1.30); MAGNESIUM 2.1 mg/dL (1.80-2.40); POTASSIUM 4.6 mmol/L (3.5-5.1); TOTAL PROTEIN, SERUM 7.7 g/dL (6.4-8.2)
[2017-08-16 07:52] LABS: RBC MORPHOLOGY COMMENT ABNORMAL RBC MORPH
[2017-08-16] MEDS ORDERED: SODIUM CHLORIDE 0.9% 250 ML IV ONE (08:01)
[2017-08-16 08:20] VITALS: BP 129/60
[2017-08-16 08:20] LABS: ERYTHROCYTE SEDIMENTATION RATE 43 MM/HR (0-20)
[2017-08-16] MEDS: FUROSEMIDE 40 MG/4 ML VIAL IVP SCH ×2 (08:21→21:08)
[2017-08-16] MEDS: VANCOMYCIN HCL 750 MG in DEXTROSE 5%-WATER 150 ML IV SCH (08:21)
[2017-08-16] MEDS: HEPARIN SODIUM,PORCINE 5,000 UNITS/ML VIAL SQ SCH ×3 (08:21→23:51)
[2017-08-16] MEDS: APIXABAN 5 MG TABLET PO SCH ×2 (08:25→21:08)
[2017-08-16] MEDS: LEVOFLOXACIN 500 MG TABLET PO SCH (08:25)
[2017-08-16] MEDS: POTASSIUM CHLORIDE 10 MEQ ER TABLET PO SCH (08:25)
[2017-08-16] MEDS: MULTIVITAMINS WITH MINERALS, THERAPEUTIC TABLET PO SCH (08:26)
[2017-08-16] MEDS: ASPIRIN 81 MG CHEWABLE TABLET PO SCH (08:26)
[2017-08-16] MEDS: ATORVASTATIN CALCIUM 20 MG TABLET PO SCH (08:26)
[2017-08-16] MEDS: LISINOPRIL 20 MG TABLET PO SCH (08:26)
[2017-08-16] MEDS: METOPROLOL TARTRATE 25 MG TABLET PO SCH (08:27)
[2017-08-16] MEDS: NYSTATIN 15 GM POWDER BOTTLE TP SCH ×2 (09:00→21:08)
[2017-08-16 11:09] VITALS: BP 127/70
[2017-08-16] MEDS: INSULIN ASPART 100 UNITS/ML SQ PRN (12:07)
[2017-08-16] MEDS: AMIODARONE HCL 200 MG TABLET PO SCH (12:09)
[2017-08-16 15:18] VITALS: BP 132/73
[2017-08-16 17:27] LABS: GLUCOSE,POINT OF CARE 135 MG/DL (70-110)
[2017-08-16 17:27] LABS: GLUCOSE,POINT OF CARE 112 MG/DL (70-110)
[2017-08-16 19:40] VITALS: BP 113/63
[2017-08-16 20:47] LABS: GLUCOSE,POINT OF CARE 138 MG/DL (70-110)
[2017-08-16 20:47] LABS: GLUCOSE,POINT OF CARE 159 MG/DL (70-110)
[2017-08-17] VITALS (7 sets, daily range): BP systolic 98–115; BP diastolic 44–77
[2017-08-17 06:15] LABS: EOSINOPHILS % (AUTO) 0.7 % (1.0-6.0); HEMATOCRIT 35.9 % (36-46); HEMOGLOBIN 11.9 g/dL (12.0-16.0); LYMPHOCYTES # (AUTO) 0.6 K/uL (1.0-4.8); LYMPHOCYTES % (AUTO) 4.7 % (22.0-44.0); MEAN CORPUSCULAR HEMOGLOBIN 30.6 pg (26.0-34.0); MEAN CORPUSCULAR HGB CONC 33.2 G/dL (31.0-37.0); MEAN CORPUSCULAR VOLUME 92 fL (80-100); MONOCYTES # (AUTO) 0.8 K/uL (0.1-1.0); NEUTROPHILS # (AUTO) 11.2 K/uL (1.8-7.7); PLATELET COUNT (AUTO) 267 K/uL (150-450); RED BLOOD CELL COUNT(AUTO) 3.89 MIL/uL (4.00-5.20); RED CELL DISTRIBUTION WIDTH 18.1 % (11.5-14.5); WHITE BLOOD COUNT (AUTO) 12.6 K/uL (4.5-11.0)
[2017-08-17 06:39] LABS: ALBUMIN 2.5 g/dL (3.4-5.0); BILIRUBIN,TOTAL 1.4 mg/dL (0.1-1.0); CALCIUM, TOTAL 8.7 mg/dL (8.8-10.5); CREATININE 1.8 mg/dL (0.60-1.30); POTASSIUM 3.8 mmol/L (3.5-5.1)
[2017-08-17] MEDS: VANCOMYCIN HCL 750 MG in DEXTROSE 5%-WATER 150 ML IV SCH (07:37)
[2017-08-17 07:38] LABS: NEUTROPHILS % (AUTO) 88.6 % (40.0-70.0)
[2017-08-17 08:17] LABS: RBC MORPHOLOGY COMMENT ABNORMAL RBC MORPH
[2017-08-17] MEDS: HEPARIN SODIUM,PORCINE 5,000 UNITS/ML VIAL SQ SCH ×2 (08:45→16:00)
[2017-08-17] MEDS: AMIODARONE HCL 200 MG TABLET PO SCH (08:45)
[2017-08-17] MEDS: ASPIRIN 81 MG CHEWABLE TABLET PO SCH (08:46)
[2017-08-17] MEDS: LEVOFLOXACIN 500 MG TABLET PO SCH (08:46)
[2017-08-17] MEDS: MULTIVITAMINS WITH MINERALS, THERAPEUTIC TABLET PO SCH (08:47)
[2017-08-17] MEDS: LISINOPRIL 20 MG TABLET PO SCH (08:47)
[2017-08-17] MEDS: APIXABAN 5 MG TABLET PO SCH ×2 (08:47→20:29)
[2017-08-17] MEDS: METOPROLOL TARTRATE 25 MG TABLET PO SCH (08:47)
[2017-08-17] MEDS: ATORVASTATIN CALCIUM 20 MG TABLET PO SCH (08:47)
[2017-08-17] MEDS: POTASSIUM CHLORIDE 10 MEQ ER TABLET PO SCH (08:47)
[2017-08-17] MEDS: FUROSEMIDE 40 MG/4 ML VIAL IVP SCH ×2 (08:48→20:29)
[2017-08-17] MEDS: NYSTATIN 15 GM POWDER BOTTLE TP SCH ×2 (08:49→20:30)
[2017-08-17] MEDS: ACETAMINOPHEN 325 MG TABLET PO PRN ×2 (09:53→22:39)
[2017-08-17 11:32] LABS: ERYTHROCYTE SEDIMENTATION RATE 40 MM/HR (0-20)
[2017-08-17] MEDS: INSULIN ASPART 100 UNITS/ML SQ PRN (12:02)
[2017-08-17 20:14] LABS: GLUCOSE,POINT OF CARE 94 MG/DL (70-110)
[2017-08-17 20:15] LABS: GLUCOSE,POINT OF CARE 118 MG/DL (70-110)
[2017-08-17 20:17] LABS: GLUCOSE COMMENT 1 Received Meds; GLUCOSE,POINT OF CARE 186 MG/DL (70-110)
[2017-08-17 20:37] LABS: GLUCOSE,POINT OF CARE 106 MG/DL (70-110)
[2017-08-17 21:07] LABS: GLUCOSE,POINT OF CARE 139 MG/DL (70-110)
[2017-08-17] MEDS: DiphenhydrAMINE HCL 25 MG CAPSULE PO PRN (22:39)
[2017-08-18 04:57] VITALS: BP 110/56
[2017-08-18 07:01] LABS: BASOPHILS # (AUTO) 0.01 K/uL (0.00-0.20); BASOPHILS % (AUTO) 0.1 % (0.0-2.0); EOSINOPHILS # (AUTO) 0.13 K/uL (0.00-0.70); EOSINOPHILS % (AUTO) 1.17 % (1.0-6.0); HEMATOCRIT 35.9 % (36-46); HEMOGLOBIN 11.7 g/dL (12.0-16.0); LYMPHOCYTES # (AUTO) 0.5 K/uL (1.0-4.8); LYMPHOCYTES % (AUTO) 4.4 % (22.0-44.0); MEAN CORPUSCULAR HEMOGLOBIN 29.9 pg (26.0-34.0); MEAN CORPUSCULAR HGB CONC 32.6 G/dL (31.0-37.0); MEAN CORPUSCULAR VOLUME 92 fL (80-100); MONOCYTES # (AUTO) 0.6 K/uL (0.1-1.0); MONOCYTES % (AUTO) 4.9 % (2.0-9.0); NEUTROPHILS # (AUTO) 10.3 K/uL (1.8-7.7); PLATELET COUNT (AUTO) 240 K/uL (150-450); RED BLOOD CELL COUNT(AUTO) 3.92 MIL/uL (4.00-5.20); WHITE BLOOD COUNT (AUTO) 11.5 K/uL (4.5-11.0)
[2017-08-18 07:04] LABS: NEUTROPHILS % (AUTO) 89.4 % (40.0-70.0)
[2017-08-18 07:13] LABS: CREATININE 1.57 mg/dL (0.60-1.30); POTASSIUM 3.8 mmol/L (3.5-5.1)
[2017-08-18 07:53] VITALS: BP 114/56
[2017-08-18 08:20] LABS: ERYTHROCYTE SEDIMENTATION RATE 35 MM/HR (0-20)
[2017-08-18] MEDS: FUROSEMIDE 40 MG/4 ML VIAL IVP SCH ×2 (08:30→21:21)
[2017-08-18] MEDS: HEPARIN SODIUM,PORCINE 5,000 UNITS/ML VIAL SQ SCH ×3 (08:30→15:52)
[2017-08-18] MEDS: VANCOMYCIN HCL 750 MG in DEXTROSE 5%-WATER 150 ML IV SCH (08:30)
[2017-08-18] MEDS: METOPROLOL TARTRATE 25 MG TABLET PO SCH (08:31)
[2017-08-18] MEDS: AMIODARONE HCL 200 MG TABLET PO SCH (08:31)
[2017-08-18] MEDS: APIXABAN 5 MG TABLET PO SCH (08:31)
[2017-08-18] MEDS: POTASSIUM CHLORIDE 10 MEQ ER TABLET PO SCH (08:31)
[2017-08-18] MEDS: MULTIVITAMINS WITH MINERALS, THERAPEUTIC TABLET PO SCH (08:31)
[2017-08-18] MEDS: ATORVASTATIN CALCIUM 20 MG TABLET PO SCH (08:31)
[2017-08-18] MEDS: ASPIRIN 81 MG CHEWABLE TABLET PO SCH (08:31)
[2017-08-18] MEDS: NYSTATIN 15 GM POWDER BOTTLE TP SCH ×2 (08:32→21:21)
[2017-08-18 08:51] LABS: RBC MORPHOLOGY COMMENT ABNORMAL RBC MORPH
[2017-08-18 11:44] VITALS: BP 116/60
[2017-08-18] MEDS: LISINOPRIL 20 MG TABLET PO SCH (12:12)
[2017-08-18] MEDS: ACETAMINOPHEN 325 MG TABLET PO PRN ×2 (12:12→17:43)
[2017-08-18] MEDS: INSULIN ASPART 100 UNITS/ML SQ PRN (12:14)
[2017-08-18 15:52] VITALS: BP 93/56
[2017-08-18 16:43] VITALS: BP 108/64
[2017-08-18 20:08] VITALS: BP 92/55
[2017-08-18] MEDS: OXYGEN THERAPY IH SCH (21:21)
[2017-08-19 00:10] VITALS: BP 105/59
[2017-08-19] MEDS: DiphenhydrAMINE HCL 25 MG CAPSULE PO PRN ×2 (00:52→20:25)
[2017-08-19] MEDS: ACETAMINOPHEN 325 MG TABLET PO PRN ×2 (00:52→10:32)
[2017-08-19 06:05] LABS: CALCIUM, TOTAL 8.5 mg/dL (8.8-10.5); CREATININE 1.65 mg/dL (0.60-1.30); POTASSIUM 3.9 mmol/L (3.5-5.1)
[2017-08-19 07:46] VITALS: BP 106/61
[2017-08-19] MEDS: OXYGEN THERAPY IH SCH ×2 (08:51→20:26)
[2017-08-19] MEDS: METOPROLOL TARTRATE 25 MG TABLET PO SCH (08:52)
[2017-08-19] MEDS: VANCOMYCIN HCL 750 MG in DEXTROSE 5%-WATER 150 ML IV SCH (08:52)
[2017-08-19] MEDS: ATORVASTATIN CALCIUM 20 MG TABLET PO SCH (08:52)
[2017-08-19] MEDS: MULTIVITAMINS WITH MINERALS, THERAPEUTIC TABLET PO SCH (08:52)
[2017-08-19] MEDS: AMIODARONE HCL 200 MG TABLET PO SCH (08:52)
[2017-08-19] MEDS: HEPARIN SODIUM,PORCINE 5,000 UNITS/ML VIAL SQ SCH ×3 (08:52→15:41)
[2017-08-19] MEDS: POTASSIUM CHLORIDE 10 MEQ ER TABLET PO SCH (08:52)
[2017-08-19] MEDS: FUROSEMIDE 40 MG/4 ML VIAL IVP SCH ×2 (08:52→20:24)
[2017-08-19] MEDS: NYSTATIN 15 GM POWDER BOTTLE TP SCH ×2 (08:53→20:28)
[2017-08-19] MEDS: ASPIRIN 81 MG CHEWABLE TABLET PO SCH (09:00)
[2017-08-19] MEDS: LISINOPRIL 20 MG TABLET PO SCH (09:00)
[2017-08-19] MEDS: INSULIN ASPART 100 UNITS/ML SQ PRN ×2 (11:53→17:43)
[2017-08-19 11:57] VITALS: BP 105/53
[2017-08-19 16:11] VITALS: BP 118/62
[2017-08-19 19:19] VITALS: BP 102/51
[2017-08-19 21:28] LABS: GLUCOSE,POINT OF CARE 136 MG/DL (70-110)
[2017-08-20] MEDS: HEPARIN SODIUM,PORCINE 5,000 UNITS/ML VIAL SQ SCH ×3 (01:28→18:22)
[2017-08-20 03:32] VITALS: BP 109/64
[2017-08-20 05:28] LABS: GLUCOSE,POINT OF CARE 106 MG/DL (70-110)
[2017-08-20 05:28] LABS: GLUCOSE,POINT OF CARE 122 MG/DL (70-110)
[2017-08-20 06:30] LABS: BASOPHILS % (AUTO) 0.2 % (0.0-2.0); EOSINOPHILS % (AUTO) 2.2 % (1.0-6.0); HEMATOCRIT 34.1 % (36-46); HEMOGLOBIN 11.1 g/dL (12.0-16.0); LYMPHOCYTES # (AUTO) 0.7 K/uL (1.0-4.8); LYMPHOCYTES % (AUTO) 6.7 % (22.0-44.0); MEAN CORPUSCULAR HGB CONC 32.6 G/dL (31.0-37.0); MEAN CORPUSCULAR VOLUME 92 fL (80-100); MONOCYTES # (AUTO) 0.7 K/uL (0.1-1.0); MONOCYTES % (AUTO) 6.5 % (2.0-9.0); NEUTROPHILS # (AUTO) 8.4 K/uL (1.8-7.7); NEUTROPHILS % (AUTO) 84.4 % (40.0-70.0); PLATELET COUNT (AUTO) 229 K/uL (150-450); RED CELL DISTRIBUTION WIDTH 18.3 % (11.5-14.5)
[2017-08-20 06:34] LABS: INR 1.5 (0.9-1.1); PROTHROMBIN TIME 15.4 SEC (9.4-11.6)
[2017-08-20 06:54] LABS: CALCIUM, TOTAL 8.6 mg/dL (8.8-10.5); CREATININE 1.36 mg/dL (0.60-1.30); POTASSIUM 3.8 mmol/L (3.5-5.1)
[2017-08-20 07:18] LABS: GLUCOSE,POINT OF CARE 72 MG/DL (70-110)
[2017-08-20 10:05] LABS: RBC MORPHOLOGY COMMENT ABNORMAL RBC MORPH
[2017-08-20 11:11] VITALS: BP 103/56
[2017-08-20] MEDS: VANCOMYCIN HCL 750 MG in DEXTROSE 5%-WATER 150 ML IV SCH (14:21)
[2017-08-20] MEDS: ACETAMINOPHEN 325 MG TABLET PO PRN (14:22)
[2017-08-20] MEDS: FUROSEMIDE 40 MG/4 ML VIAL IVP SCH ×2 (14:22→20:28)
[2017-08-20] MEDS: POTASSIUM CHLORIDE 10 MEQ ER TABLET PO SCH (14:23)
[2017-08-20] MEDS: ATORVASTATIN CALCIUM 20 MG TABLET PO SCH (14:23)
[2017-08-20] MEDS: AMIODARONE HCL 200 MG TABLET PO SCH (14:24)
[2017-08-20] MEDS: MULTIVITAMINS WITH MINERALS, THERAPEUTIC TABLET PO SCH (14:30)
[2017-08-20] MEDS: METOPROLOL TARTRATE 25 MG TABLET PO SCH (14:30)
[2017-08-20] MEDS: LISINOPRIL 20 MG TABLET PO SCH (14:30)
[2017-08-20] MEDS: OXYGEN THERAPY IH SCH ×2 (14:31→20:28)
[2017-08-20] MEDS: NYSTATIN 15 GM POWDER BOTTLE TP SCH ×2 (14:31→20:28)
[2017-08-20] MEDS ORDERED: SODIUM CHLORIDE 0.9% 250 ML IV ONE (14:35)
[2017-08-20 16:06] VITALS: BP 106/52
[2017-08-20 19:18] VITALS: BP 101/57
[2017-08-20] MEDS: DiphenhydrAMINE HCL 25 MG CAPSULE PO PRN (22:30)
[2017-08-20 23:05] VITALS: BP 104/67
[2017-08-21 04:35] VITALS: BP 109/58
[2017-08-21 06:44] LABS: CALCIUM, TOTAL 9.2 mg/dL (8.8-10.5); CREATININE 1.31 mg/dL (0.60-1.30); INR 1.4 (0.9-1.1); POTASSIUM 4.5 mmol/L (3.5-5.1); PROTHROMBIN TIME 14.7 SEC (9.4-11.6)
[2017-08-21 07:15] VITALS: BP 102/56
[2017-08-21] MEDS: OXYGEN THERAPY IH SCH ×2 (08:00→20:58)
[2017-08-21 10:04] LABS: GLUCOSE COMMENT 1 Received Meds; GLUCOSE,POINT OF CARE 143 MG/DL (70-110)
[2017-08-21 10:10] LABS: GLUCOSE,POINT OF CARE 98 MG/DL (70-110)
[2017-08-21 10:37] LABS: GLUCOSE,POINT OF CARE 146 MG/DL (70-110)
[2017-08-21 11:21] VITALS: BP 108/60
[2017-08-21] MEDS ORDERED: LIDOCAINE HCL/PF 1% 30 ML VIAL ONE (11:53)
[2017-08-21] MEDS: VANCOMYCIN HCL 750 MG in DEXTROSE 5%-WATER 150 ML IV SCH (13:51)
[2017-08-21] MEDS: FUROSEMIDE 40 MG/4 ML VIAL IVP SCH ×2 (13:51→20:59)
[2017-08-21] MEDS: HEPARIN SODIUM,PORCINE 5,000 UNITS/ML VIAL SQ SCH ×3 (13:51→18:11)
[2017-08-21] MEDS: POTASSIUM CHLORIDE 10 MEQ ER TABLET PO SCH (13:52)
[2017-08-21] MEDS: ACETAMINOPHEN 325 MG TABLET PO PRN ×2 (13:52→21:43)
[2017-08-21] MEDS: ATORVASTATIN CALCIUM 20 MG TABLET PO SCH (13:52)
[2017-08-21] MEDS: NYSTATIN 15 GM POWDER BOTTLE TP SCH ×2 (13:53→20:59)
[2017-08-21] MEDS: LISINOPRIL 20 MG TABLET PO SCH (13:53)
[2017-08-21] MEDS: METOPROLOL TARTRATE 25 MG TABLET PO SCH (13:53)
[2017-08-21] MEDS: MULTIVITAMINS WITH MINERALS, THERAPEUTIC TABLET PO SCH (13:53)
[2017-08-21] MEDS: AMIODARONE HCL 200 MG TABLET PO SCH (13:54)
[2017-08-21 16:08] VITALS: BP 110/66
[2017-08-21] MEDS: INSULIN ASPART 100 UNITS/ML SQ PRN (18:31)
[2017-08-21 20:00] VITALS: BP 101/47
[2017-08-21] MEDS: APIXABAN 2.5 MG TABLET PO SCH (20:59)
[2017-08-21] MEDS: DiphenhydrAMINE HCL 25 MG CAPSULE PO PRN (21:42)
[2017-08-22] MEDS: HEPARIN SODIUM,PORCINE 5,000 UNITS/ML VIAL SQ SCH ×3 (00:02→16:11)
[2017-08-22 00:11] VITALS: BP 114/51
[2017-08-22 00:38] LABS: GLUCOSE,POINT OF CARE 119 MG/DL (70-110)
[2017-08-22 00:38] LABS: GLUCOSE,POINT OF CARE 161 MG/DL (70-110)
[2017-08-22 00:38] LABS: GLUCOSE,POINT OF CARE 106 MG/DL (70-110)
[2017-08-22 04:00] VITALS: BP 108/63
[2017-08-22 07:12] VITALS: BP 100/57
[2017-08-22 07:33] LABS: BASOPHILS % (AUTO) 0.3 % (0.0-2.0); EOSINOPHILS % (AUTO) 1.8 % (1.0-6.0); HEMATOCRIT 35.8 % (36-46); HEMOGLOBIN 11.7 g/dL (12.0-16.0); LYMPHOCYTES # (AUTO) 0.6 K/uL (1.0-4.8); LYMPHOCYTES % (AUTO) 5.8 % (22.0-44.0); MEAN CORPUSCULAR HGB CONC 32.5 G/dL (31.0-37.0); MEAN CORPUSCULAR VOLUME 92 fL (80-100); MONOCYTES # (AUTO) 0.6 K/uL (0.1-1.0); MONOCYTES % (AUTO) 5.9 % (2.0-9.0); NEUTROPHILS # (AUTO) 8.9 K/uL (1.8-7.7); NEUTROPHILS % (AUTO) 86.2 % (40.0-70.0); PLATELET COUNT (AUTO) 208 K/uL (150-450); RBC MORPHOLOGY COMMENT ABNORMAL RBC MORPH; RED BLOOD CELL COUNT(AUTO) 3.89 MIL/uL (4.00-5.20); RED CELL DISTRIBUTION WIDTH 18.4 % (11.5-14.5); WHITE BLOOD COUNT (AUTO) 10.3 K/uL (4.5-11.0)
[2017-08-22 07:36] LABS: CREATININE 1.36 mg/dL (0.60-1.30)
[2017-08-22] MEDS: VANCOMYCIN HCL 750 MG in DEXTROSE 5%-WATER 150 ML IV SCH (09:40)
[2017-08-22] MEDS: OXYGEN THERAPY IH SCH ×2 (09:40→20:50)
[2017-08-22] MEDS: MULTIVITAMINS WITH MINERALS, THERAPEUTIC TABLET PO SCH (09:41)
[2017-08-22] MEDS: AMIODARONE HCL 200 MG TABLET PO SCH (09:41)
[2017-08-22] MEDS: FUROSEMIDE 40 MG/4 ML VIAL IVP SCH ×2 (09:41→20:50)
[2017-08-22] MEDS: ATORVASTATIN CALCIUM 20 MG TABLET PO SCH (09:41)
[2017-08-22] MEDS: LISINOPRIL 20 MG TABLET PO SCH (09:41)
[2017-08-22] MEDS: NYSTATIN 15 GM POWDER BOTTLE TP SCH ×2 (09:41→20:50)
[2017-08-22] MEDS: APIXABAN 2.5 MG TABLET PO SCH ×2 (09:41→20:50)
[2017-08-22] MEDS: POTASSIUM CHLORIDE 10 MEQ ER TABLET PO SCH (09:42)
[2017-08-22] MEDS: METOPROLOL TARTRATE 25 MG TABLET PO SCH (09:42)
[2017-08-22 11:28] VITALS: BP 108/63
[2017-08-22] MEDS: INSULIN ASPART 100 UNITS/ML SQ PRN ×2 (12:45→21:17)
[2017-08-22 15:36] VITALS: BP 111/65
[2017-08-22] MEDS: ACETAMINOPHEN 325 MG TABLET PO PRN ×2 (16:11→20:49)
[2017-08-22 20:07] VITALS: BP 93/65
[2017-08-22] MEDS: DiphenhydrAMINE HCL 25 MG CAPSULE PO PRN (20:49)
[2017-08-23] MEDS: HEPARIN SODIUM,PORCINE 5,000 UNITS/ML VIAL SQ SCH ×3 (00:12→16:33)
[2017-08-23 00:18] VITALS: BP 102/52
[2017-08-23 07:32] VITALS: BP 104/48
[2017-08-23 07:55] LABS: CALCIUM, TOTAL 8.6 mg/dL (8.8-10.5); CREATININE 1.41 mg/dL (0.60-1.30); POTASSIUM 4.3 mmol/L (3.5-5.1)
[2017-08-23] MEDS: VANCOMYCIN HCL 750 MG in DEXTROSE 5%-WATER 150 ML IV SCH (08:10)
[2017-08-23] MEDS: OXYGEN THERAPY IH SCH ×2 (08:11→21:13)
[2017-08-23 08:59] LABS: GLUCOSE,POINT OF CARE 158 MG/DL (70-110)
[2017-08-23 08:59] LABS: GLUCOSE,POINT OF CARE 132 MG/DL (70-110)
[2017-08-23 09:00] LABS: GLUCOSE COMMENT 1 Received Meds; GLUCOSE,POINT OF CARE 151 MG/DL (70-110)
[2017-08-23] MEDS: LISINOPRIL 20 MG TABLET PO SCH (09:00)
[2017-08-23] MEDS: FUROSEMIDE 40 MG/4 ML VIAL IVP SCH ×2 (09:00→21:00)
[2017-08-23] MEDS: METOPROLOL TARTRATE 25 MG TABLET PO SCH (09:00)
[2017-08-23] MEDS: ATORVASTATIN CALCIUM 20 MG TABLET PO SCH (09:19)
[2017-08-23 09:20] LABS: GLUCOSE,POINT OF CARE 114 MG/DL (70-110)
[2017-08-23] MEDS: AMIODARONE HCL 200 MG TABLET PO SCH (09:20)
[2017-08-23] MEDS: MULTIVITAMINS WITH MINERALS, THERAPEUTIC TABLET PO SCH (09:20)
[2017-08-23] MEDS: ACETAMINOPHEN 325 MG TABLET PO PRN ×3 (09:20→21:12)
[2017-08-23] MEDS: APIXABAN 2.5 MG TABLET PO SCH ×2 (09:20→21:07)
[2017-08-23] MEDS: POTASSIUM CHLORIDE 10 MEQ ER TABLET PO SCH (09:20)
[2017-08-23] MEDS: NYSTATIN 15 GM POWDER BOTTLE TP SCH ×2 (09:23→21:07)
[2017-08-23 11:33] LABS: GLUCOSE,POINT OF CARE 102 MG/DL (70-110)
[2017-08-23 11:45] VITALS: BP 98/57
[2017-08-23] MEDS: INSULIN ASPART 100 UNITS/ML SQ PRN ×2 (12:31→21:10)
[2017-08-23 15:10] VITALS: BP 113/48
[2017-08-23 19:22] LABS: GLUCOSE,POINT OF CARE 96 MG/DL (70-110)
[2017-08-23 19:27] VITALS: BP 93/49
[2017-08-23] MEDS: DiphenhydrAMINE HCL 25 MG CAPSULE PO PRN (21:11)
[2017-08-24 00:02] VITALS: BP 96/57
[2017-08-24] MEDS: HEPARIN SODIUM,PORCINE 5,000 UNITS/ML VIAL SQ SCH ×3 (00:04→16:00)
[2017-08-24 04:47] VITALS: BP 110/68
[2017-08-24 07:06] LABS: CALCIUM, TOTAL 8.7 mg/dL (8.8-10.5); CREATININE 1.33 mg/dL (0.60-1.30); POTASSIUM 4.9 mmol/L (3.5-5.1)
[2017-08-24 07:31] VITALS: BP 105/66
[2017-08-24] MEDS ORDERED: SODIUM CHLORIDE 0.9% 250 ML IV ONE (08:45)
[2017-08-24] MEDS: MULTIVITAMINS WITH MINERALS, THERAPEUTIC TABLET PO SCH (08:51)
[2017-08-24] MEDS: ATORVASTATIN CALCIUM 20 MG TABLET PO SCH (08:51)
[2017-08-24] MEDS: VANCOMYCIN HCL 750 MG in DEXTROSE 5%-WATER 150 ML IV SCH (08:51)
[2017-08-24] MEDS: AMIODARONE HCL 200 MG TABLET PO SCH (08:51)
[2017-08-24] MEDS: METOPROLOL TARTRATE 25 MG TABLET PO SCH (08:52)
[2017-08-24] MEDS: LISINOPRIL 20 MG TABLET PO SCH (08:52)
[2017-08-24] MEDS: FUROSEMIDE 40 MG/4 ML VIAL IVP SCH (08:52)
[2017-08-24] MEDS: APIXABAN 2.5 MG TABLET PO SCH (08:52)
[2017-08-24] MEDS: OXYGEN THERAPY IH SCH (08:52)
[2017-08-24] MEDS: NYSTATIN 15 GM POWDER BOTTLE TP SCH (08:53)
[2017-08-24] MEDS: POTASSIUM CHLORIDE 10 MEQ ER TABLET PO SCH (09:00)
[2017-08-24 11:39] VITALS: BP 111/59
[2017-08-24] MEDS: INSULIN ASPART 100 UNITS/ML SQ PRN (12:40)
[2017-08-24 15:29] VITALS: BP 122/64
[2017-08-24] MEDS ORDERED: HEPA500018 SQ (17:55)
[2017-08-24] MEDS ORDERED: FURO40I IV (18:00)
[2017-08-24] MEDS ORDERED: MV-M1TAB2 PO (18:15)
[2017-08-24] MEDS ORDERED: OXYGEN IH (18:16)
[2017-08-24] MEDS ORDERED: VANC750P8 IV (18:22)
[2017-08-24] MEDS ORDERED: ACET-2902 PO (18:23)
[2017-08-24] MEDS ORDERED: DIPH25 PO (18:25)
[2017-08-24] MEDS ORDERED: D50SYG IVP (18:25)
[2017-08-24] MEDS ORDERED: INSNOV SQ (18:26)
[2017-08-24 19:33] LABS: GLUCOSE,POINT OF CARE 158 MG/DL (70-110)
[2017-08-24 19:38] LABS: GLUCOSE,POINT OF CARE 91 MG/DL (70-110)
[2017-08-24 19:38] LABS: GLUCOSE COMMENT 1 Received Meds; GLUCOSE,POINT OF CARE 158 MG/DL (70-110)
[2017-08-24 19:38] LABS: GLUCOSE COMMENT 1 Received Meds; GLUCOSE,POINT OF CARE 166 MG/DL (70-110)
[2017-08-24 19:53] LABS: GLUCOSE,POINT OF CARE 152 MG/DL (70-110)
[2017-08-24 19:53] LABS: GLUCOSE COMMENT 1 Received Meds; GLUCOSE,POINT OF CARE 154 MG/DL (70-110)
[2017-08-24 19:53] LABS: GLUCOSE,POINT OF CARE 89 MG/DL (70-110)
[2017-08-24 19:58] LABS: GLUCOSE,POINT OF CARE 105 MG/DL (70-110)
[2017-08-24 19:58] LABS: GLUCOSE,POINT OF CARE 123 MG/DL (70-110)
[2017-09-25] MEDS ORDERED: DiphenhydrAMINE HCL 25 MG CAPSULE PO PRN (22:00)
== END 2017-08-24 17:20 | DRG 872 ==
LOC: EMS 00:22 → 5N 02:02 → 5S 08-16 20:15
PROVIDERS: ADMIT Family Medicine; ATTEND Family Medicine
PROC: 0S9C3ZZ Drainage of Right Knee Joint, Percutaneous Approach (ICD-10-PCS; principal; 2017-08-21)
PROC: 06HY33Z Insertion of Infusion Device into Lower Vein, Percutaneous Approach (ICD-10-PCS; 2017-08-21)
DX: A41.9 Sepsis, unspecified organism (principal); I42.9 Cardiomyopathy, unspecified; I48.2 Chronic atrial fibrillation; E87.1 Hypo-osmolality and hyponatremia; I50.42 Chronic combined systolic (congestive) and diastolic (congestive) heart failure; I13.0 Hypertensive heart and chronic kidney disease with heart failure and stage 1 through stage 4 chronic kidney disease, or unspecified chronic kidney disease; E44.1 Mild protein-calorie malnutrition; T82.818A Embolism due to vascular prosthetic devices, implants and grafts, initial encounter; L03.115 Cellulitis of right lower limb; L97.329 Non-pressure chronic ulcer of left ankle with unspecified severity; L02.415 Cutaneous abscess of right lower limb; S80.01XA Contusion of right knee, initial encounter; W19.XXXA Unspecified fall, initial encounter; E78.5 Hyperlipidemia, unspecified; I25.10 Atherosclerotic heart disease of native coronary artery without angina pectoris; E78.00 Pure hypercholesterolemia, unspecified; N18.3 Chronic kidney disease, stage 3 (moderate); I83.029 Varicose veins of left lower extremity with ulcer of unspecified site; R60.9 Edema, unspecified; B95.62 Methicillin resistant Staphylococcus aureus infection as the cause of diseases classified elsewhere; Z88.0 Allergy status to penicillin; Z91.013 Allergy to seafood; Z91.018 Allergy to other foods; Z79.899 Other long term (current) drug therapy; Z79.82 Long term (current) use of aspirin; Z79.01 Long term (current) use of anticoagulants; Z95.1 Presence of aortocoronary bypass graft; Z90.49 Acquired absence of other specified parts of digestive tract; Z95.0 Presence of cardiac pacemaker; Z98.891 History of uterine scar from previous surgery; Z95.2 Presence of prosthetic heart valve; Z91.81 History of falling; Y93.89 Activity, other specified; Y92.89 Other specified places as the place of occurrence of the external cause; Y99.8 Other external cause status; Y83.8 Other surgical procedures as the cause of abnormal reaction of the patient, or of later complication, without mention of misadventure at the time of the procedure
CPT/HCPCS: 73700; 75989; 76881; 82962; 83605; 83735; 85651; 86140; 87040; 87070; 87147; 87205; 88173; 93005; 93306; 93970; 96365; 96375; 97110; 97116; 97163; 97166; 97530; 97535; 99291; J1644; J1940; J3370; J3490; J7050; J7060

== ENCOUNTER 2017-09-23 23:25 | Inpatient (IN) | payer MEDICARE ==
[~2017-09-23] VITALS: Ht 162.6 cm; Wt 76.1 kg
[~2017-09-23 23:25] MED LIST changes: +ACET-2902 PO; +ATOR20TA86 PO; -CHOL200016 PO; -CYAN100010 PO; +D50SYG IVP; +DIPH25 PO; +HEPA500018 SQ; -HYDR-4061 PO; +INSNOV SQ; -IPRNEB IH; -LEVO25TA9 PO; +METO25 PO; +MV-M1TAB2 PO; +OXYGEN IH; -SPIR25 PO; -UBID400C6 PO; +VANC750P8 IV; -VITA400T7 PO
[2017-09-23 23:37] LABS: GLUCOSE,POINT OF CARE 169 MG/DL (70-110)
[2017-09-24] MEDS ORDERED: IPRATROPIUM BROMIDE 0.5 MG/2.5 ML NEB SOLUTION NEB ONE (00:15)
[2017-09-24] MEDS ORDERED: ALBUTEROL SULFATE 5 MG/ML 20 ML NEB SOLN [BULK] NEB ONE ×2 (00:15→03:45)
[2017-09-24] MEDS ORDERED: 0.9% SODIUM CHLORIDE 5 ML NEB SOLUTION NEB ONE ×5 (00:20→23:06)
[2017-09-24 00:55] LABS: BASOPHILS % (AUTO) 0.2 % (0.0-2.0); EOSINOPHILS % (AUTO) 0.1 % (1.0-6.0); HEMATOCRIT 30.1 % (36-46); HEMOGLOBIN 9.9 g/dL (12.0-16.0); LYMPHOCYTES # (AUTO) 0.6 K/uL (1.0-4.8); LYMPHOCYTES % (AUTO) 5.9 % (22.0-44.0); MEAN CORPUSCULAR HEMOGLOBIN 29.7 pg (26.0-34.0); MEAN CORPUSCULAR HGB CONC 32.7 G/dL (31.0-37.0); MEAN CORPUSCULAR VOLUME 91 fL (80-100); MONOCYTES # (AUTO) 0.8 K/uL (0.1-1.0); MONOCYTES % (AUTO) 7.8 % (2.0-9.0); NEUTROPHILS # (AUTO) 8.7 K/uL (1.8-7.7); PLATELET COUNT (AUTO) 197 K/uL (150-450); RED BLOOD CELL COUNT(AUTO) 3.32 MIL/uL (4.00-5.20); RED CELL DISTRIBUTION WIDTH 19.5 % (11.5-14.5); WHITE BLOOD COUNT (AUTO) 10.1 K/uL (4.5-11.0)
[2017-09-24 01:05] LABS: INR 1.4 (0.9-1.1); PROTHROMBIN TIME 14.6 SEC (9.4-11.6)
[2017-09-24 01:11] LABS: ANION GAP 7 mmol/L (8-16); CALCIUM, TOTAL 8.6 mg/dL (8.8-10.5); CARBON DIOXIDE 25 mmol/L (22-29); CHLORIDE 102 mmol/L (98-107); CREATININE 1.89 mg/dL (0.60-1.30); GLOMERULAR FILTR. RATE CALC 25 mL/min (>60); SODIUM SERUM 134 mmol/L (136-145); UREA NITROGEN, BLOOD 77 mg/dL (7-18)
[2017-09-24 01:15] LABS: B-TYPE NATRIURETIC PEPTIDE 2080 pg/mL (0-100)
[2017-09-24] MEDS ORDERED: FUROSEMIDE 40 MG/4 ML VIAL IVP ONE (01:15)
[2017-09-24 01:16] LABS: ALANINE AMINOTRANSFERASE 29 U/L (12-78); ASPARTATE AMINOTRANSFERASE 46 U/L (15-37); BILIRUBIN,TOTAL 0.8 mg/dL (0.1-1.0); CREATINE KINASE, TOTAL 32 U/L (26-192); TOTAL PROTEIN, SERUM 7.3 g/dL (6.4-8.2)
[2017-09-24] MEDS ORDERED: POVIDONE-IODINE 10% 15 ML SOLUTION UD ONE (01:21)
[2017-09-24 01:22] LABS: APPEARANCE,URINE CLOUDY (CLEAR); GLUCOSE, URINE (UA) NEGATIVE (NEGATIVE); KETONES,URINE NEGATIVE (NEGATIVE); LEUKOCYTE ESTERASE ,URINE NEGATIVE (NEGATIVE); OCCULT BLOOD,URINE NEGATIVE (NEGATIVE); PROTEIN,URINE NEGATIVE (NEGATIVE)
[2017-09-24] MEDS ORDERED: HYDROGEN PEROXIDE 118 ML SOLUTION ONE (01:25)
[2017-09-24 01:26] LABS: ADD UA MICROSCOPIC NO
[2017-09-24] MEDS ORDERED: BUMETANIDE 0.25 MG/ML 10 ML VIAL IVP ONE (03:30)
[2017-09-24] MEDS ORDERED: ONDANSETRON HCL 4 MG/2 ML VIAL IVP PRN (03:45)
[2017-09-24] MEDS ORDERED: 0.9% SODIUM CHLORIDE 10 ML SYRINGE IVP PRN ×2 (03:45→10:15)
[2017-09-24] MEDS ORDERED: ACETAMINOPHEN 325 MG TABLET PO PRN (03:45)
[2017-09-24 05:30] VITALS: BP 111/49
[2017-09-24 07:34] VITALS: BP 114/46
[2017-09-24] MEDS ORDERED: MORPHINE SULFATE 2 MG/ML SYRINGE IVP PRN (10:15)
[2017-09-24] MEDS: ALBUTEROL SULFATE 2.5 MG/0.5 ML NEB SOLUTION NEB SCH ×4 (11:00→23:07)
[2017-09-24 12:11] VITALS: BP 108/50
[2017-09-24 15:52] VITALS: BP 114/48
[2017-09-24 19:37] VITALS: BP 119/41
[2017-09-24 23:56] VITALS: BP 122/56
[2017-09-25] MEDS ORDERED: 0.9% SODIUM CHLORIDE 5 ML NEB SOLUTION NEB ONE ×3 (02:55→11:10)
[2017-09-25] MEDS: ALBUTEROL SULFATE 2.5 MG/0.5 ML NEB SOLUTION NEB SCH ×3 (02:56→11:19)
[2017-09-25] MEDS: ACETAMINOPHEN 325 MG TABLET PO PRN (03:59)
[2017-09-25 04:00] VITALS: BP 114/56
[2017-09-25 06:45] LABS: BASOPHILS % (AUTO) 0.2 % (0.0-2.0); EOSINOPHILS % (AUTO) 0.3 % (1.0-6.0); HEMATOCRIT 29.6 % (36-46); HEMOGLOBIN 9.8 g/dL (12.0-16.0); LYMPHOCYTES # (AUTO) 0.7 K/uL (1.0-4.8); LYMPHOCYTES % (AUTO) 7.7 % (22.0-44.0); MEAN CORPUSCULAR HEMOGLOBIN 30.2 pg (26.0-34.0); MEAN CORPUSCULAR VOLUME 92 fL (80-100); MONOCYTES # (AUTO) 0.9 K/uL (0.1-1.0); MONOCYTES % (AUTO) 9.8 % (2.0-9.0); NEUTROPHILS # (AUTO) 7.3 K/uL (1.8-7.7); PLATELET COUNT (AUTO) 176 K/uL (150-450); RED BLOOD CELL COUNT(AUTO) 3.23 MIL/uL (4.00-5.20); RED CELL DISTRIBUTION WIDTH 19.9 % (11.5-14.5)
[2017-09-25 07:19] VITALS: BP 107/77
[2017-09-25 07:29] LABS: ANION GAP 9 mmol/L (8-16); CALCIUM, TOTAL 8.9 mg/dL (8.8-10.5); CARBON DIOXIDE 26 mmol/L (22-29); CHLORIDE 99 mmol/L (98-107); CREATINE KINASE, TOTAL 52 U/L (26-192); CREATININE 1.65 mg/dL (0.60-1.30); GLOMERULAR FILTR. RATE CALC 30 mL/min (>60); SODIUM SERUM 134 mmol/L (136-145); THYROID STIMULATING HORMONE 27.45 uIU/mL (0.36-3.74); UREA NITROGEN, BLOOD 70 mg/dL (7-18)
[2017-09-25 08:17] LABS: RBC MORPHOLOGY COMMENT ABNORMAL RBC MORPH
[2017-09-25] MEDS: OXYGEN THERAPY IH SCH ×2 (09:06→20:23)
[2017-09-25] MEDS ORDERED: FUROSEMIDE 40 MG TABLET PO SCH (09:15)
[2017-09-25] MEDS: LISINOPRIL 20 MG TABLET PO SCH (09:15)
[2017-09-25] MEDS ORDERED: DEXTROSE 50%-WATER 25 GM/50 ML SYRINGE IVP PRN (09:15)
[2017-09-25] MEDS ORDERED: METOPROLOL TARTRATE 25 MG TABLET PO SCH (09:15)
[2017-09-25] MEDS ORDERED: MethylPREDNISolone SOD SUCC 125 MG/2 ML VIAL IVP SCH (10:00)
[2017-09-25] MEDS ORDERED: *CLINICAL-LEVOFLOXACIN IVPB DOSING CLINICAL ONE ×2 (10:00)
[2017-09-25] MEDS ORDERED: LEVOFLOXACIN 750 MG/D5% WATER 150 ML IV ONE (10:15)
[2017-09-25 11:03] VITALS: BP 133/73
[2017-09-25] MEDS ORDERED: SODIUM CHLORIDE 0.9% 250 ML IV ONE (11:03)
[2017-09-25] MEDS: APIXABAN 5 MG TABLET PO SCH ×2 (11:09→20:24)
[2017-09-25] MEDS: ATORVASTATIN CALCIUM 20 MG TABLET PO SCH (11:09)
[2017-09-25] MEDS: AMIODARONE HCL 200 MG TABLET PO SCH (11:12)
[2017-09-25] MEDS ORDERED: APIX2.5T PO (13:58)
[2017-09-25] MEDS: BISACODYL 10 MG RECTAL RECTAL SUPPOSITORY PR PRN (14:21)
[2017-09-25] MEDS ORDERED: DiphenhydrAMINE HCL 25 MG CAPSULE PO PRN (15:00)
[2017-09-25] MEDS ORDERED: IPRATROPIUM BROMIDE 0.5 MG/2.5 ML NEB SOLUTION NEB PRN ×2 (15:15→21:45)
[2017-09-25] MEDS ORDERED: ALBUTEROL SULFATE 2.5 MG/0.5 ML NEB SOLUTION NEB PRN (15:15)
[2017-09-25 15:49] LABS: ABG A-A DIFF O2 78.7 mmHg (10-20.0); ABG BASE EXCESS -3.2 mmol/L (-2.0-3.0); ABG HCO3 22.2 mmol/L (22.0-26.0); ABG OXYHEMOGLOBIN 95.1 % (94.0-100.0); ABG PCO2 35 mmHg (35-45); ABG PH 7.408 (7.35-7.450); ALLEN TEST, BLOOD GAS POS; TEMPERATURE, FAHRENHEIT, BG 98.6 FAHREN (96.0-98.6)
[2017-09-25] MEDS ORDERED: FUROSEMIDE 40 MG/4 ML VIAL IVP SCH (16:30)
[2017-09-25] MEDS: MethylPREDNISolone SOD SUCC 125 MG/2 ML VIAL IVP SCH (16:33)
[2017-09-25] MEDS: LEVALBUTEROL HCL 0.63 MG/3 ML NEB SOLUTION NEB SCH ×2 (18:59→23:14)
[2017-09-25] MEDS: IPRATROPIUM BROMIDE 0.5 MG/2.5 ML NEB SOLUTION NEB SCH ×2 (18:59→23:14)
[2017-09-25 19:18] VITALS: BP 111/64
[2017-09-25] MEDS ORDERED: IPRATROPIUM BROMIDE 0.5 MG/2.5 ML NEB SOLUTION NEB SCH (20:00)
[2017-09-25] MEDS ORDERED: ALBUTEROL SULFATE 2.5 MG/0.5 ML NEB SOLUTION NEB SCH (20:00)
[2017-09-25] MEDS: CARVEDILOL 3.125 MG TABLET PO SCH (20:23)
[2017-09-25] MEDS ORDERED: APIXABAN 2.5 MG TABLET PO SCH (21:00)
[2017-09-25] MEDS: DiphenhydrAMINE HCL 25 MG CAPSULE PO PRN (22:41)
[2017-09-26] VITALS: BP 113/54
[2017-09-26] MEDS: MethylPREDNISolone SOD SUCC 125 MG/2 ML VIAL IVP SCH ×4 (00:21→17:41)
[2017-09-26] MEDS: FUROSEMIDE 40 MG/4 ML VIAL IVP SCH ×3 (00:21→16:33)
[2017-09-26] MEDS: LEVALBUTEROL HCL 0.63 MG/3 ML NEB SOLUTION NEB SCH ×6 (02:53→23:22)
[2017-09-26] MEDS: IPRATROPIUM BROMIDE 0.5 MG/2.5 ML NEB SOLUTION NEB SCH ×6 (02:54→23:22)
[2017-09-26 05:48] LABS: EOSINOPHILS % (AUTO) 0.01 % (1.0-6.0); HEMATOCRIT 30.7 % (36-46); HEMOGLOBIN 9.9 g/dL (12.0-16.0); LYMPHOCYTES # (AUTO) 0.4 K/uL (1.0-4.8); LYMPHOCYTES % (AUTO) 4.9 % (22.0-44.0); MEAN CORPUSCULAR HEMOGLOBIN 29.7 pg (26.0-34.0); MEAN CORPUSCULAR HGB CONC 32.3 G/dL (31.0-37.0); MEAN CORPUSCULAR VOLUME 92 fL (80-100); MONOCYTES # (AUTO) 0.1 K/uL (0.1-1.0); MONOCYTES % (AUTO) 1.6 % (2.0-9.0); PLATELET COUNT (AUTO) 170 K/uL (150-450); RED BLOOD CELL COUNT(AUTO) 3.34 MIL/uL (4.00-5.20); RED CELL DISTRIBUTION WIDTH 19.9 % (11.5-14.5); WHITE BLOOD COUNT (AUTO) 8.6 K/uL (4.5-11.0)
[2017-09-26] MEDS: LEVOTHYROXINE SODIUM 75 MCG TABLET PO SCH (06:13)
[2017-09-26 06:23] LABS: ALBUMIN 2.9 g/dL (3.4-5.0); BILIRUBIN,TOTAL 0.9 mg/dL (0.1-1.0); CALCIUM, TOTAL 8.9 mg/dL (8.8-10.5); CREATININE 1.5 mg/dL (0.60-1.30); POTASSIUM 4.5 mmol/L (3.5-5.1); TOTAL PROTEIN, SERUM 7.3 g/dL (6.4-8.2)
[2017-09-26] MEDS ORDERED: LEVOTHYROXINE SODIUM 25 MCG TABLET PO SCH (06:30)
[2017-09-26 07:02] LABS: NEUTROPHILS % (AUTO) 93.5 % (40.0-70.0)
[2017-09-26 07:35] VITALS: BP 114/62
[2017-09-26] MEDS: OXYGEN THERAPY IH SCH ×2 (08:39→19:47)
[2017-09-26] MEDS: LISINOPRIL 20 MG TABLET PO SCH (08:53)
[2017-09-26] MEDS: MULTIVITAMINS WITH MINERALS, THERAPEUTIC TABLET PO SCH (08:53)
[2017-09-26] MEDS: AMIODARONE HCL 200 MG TABLET PO SCH (08:53)
[2017-09-26] MEDS: CARVEDILOL 3.125 MG TABLET PO SCH ×2 (08:53→19:44)
[2017-09-26] MEDS: APIXABAN 2.5 MG TABLET PO SCH ×2 (08:53→19:45)
[2017-09-26] MEDS: ATORVASTATIN CALCIUM 20 MG TABLET PO SCH (08:53)
[2017-09-26 09:03] LABS: RBC MORPHOLOGY COMMENT ABNORMAL RBC MORPH
[2017-09-26 11:37] VITALS: BP 112/68
[2017-09-26 15:47] VITALS: BP 122/58
[2017-09-26] MEDS ORDERED: HYPROMELLOSE 0.5% 15 ML OPHTHALMIC SOLUTION OU PRN (17:45)
[2017-09-26 19:49] VITALS: BP 134/62
[2017-09-26 23:46] VITALS: BP 105/61
[2017-09-27] MEDS: MethylPREDNISolone SOD SUCC 125 MG/2 ML VIAL IVP SCH ×4 (01:06→18:52)
[2017-09-27] MEDS: FUROSEMIDE 40 MG/4 ML VIAL IVP SCH ×3 (01:06→15:44)
[2017-09-27] MEDS: DiphenhydrAMINE HCL 25 MG CAPSULE PO PRN (01:09)
[2017-09-27] MEDS: LEVALBUTEROL HCL 0.63 MG/3 ML NEB SOLUTION NEB SCH ×6 (03:02→22:51)
[2017-09-27] MEDS: IPRATROPIUM BROMIDE 0.5 MG/2.5 ML NEB SOLUTION NEB SCH ×6 (03:02→22:51)
[2017-09-27 05:07] VITALS: BP 115/70
[2017-09-27] MEDS: LEVOTHYROXINE SODIUM 75 MCG TABLET PO SCH (06:18)
[2017-09-27 07:41] VITALS: BP 121/73
[2017-09-27] MEDS: APIXABAN 2.5 MG TABLET PO SCH ×2 (08:12→21:00)
[2017-09-27] MEDS: CARVEDILOL 3.125 MG TABLET PO SCH ×2 (08:12→21:00)
[2017-09-27] MEDS: AMIODARONE HCL 200 MG TABLET PO SCH (08:12)
[2017-09-27] MEDS: LISINOPRIL 20 MG TABLET PO SCH (08:12)
[2017-09-27] MEDS: MULTIVITAMINS WITH MINERALS, THERAPEUTIC TABLET PO SCH (08:12)
[2017-09-27] MEDS: ATORVASTATIN CALCIUM 20 MG TABLET PO SCH (08:12)
[2017-09-27] MEDS: OXYGEN THERAPY IH SCH ×2 (08:13→19:08)
[2017-09-27] MEDS: ACETAMINOPHEN 325 MG TABLET PO PRN (08:24)
[2017-09-27 09:50] LABS: EOSINOPHILS % (AUTO) 0.03 % (1.0-6.0); HEMATOCRIT 31.8 % (36-46); HEMOGLOBIN 9.7 g/dL (12.0-16.0); LYMPHOCYTES # (AUTO) 0.5 K/uL (1.0-4.8); LYMPHOCYTES % (AUTO) 4.6 % (22.0-44.0); MEAN CORPUSCULAR HEMOGLOBIN 28.2 pg (26.0-34.0); MEAN CORPUSCULAR HGB CONC 30.6 G/dL (31.0-37.0); MEAN CORPUSCULAR VOLUME 92 fL (80-100); MONOCYTES # (AUTO) 0.3 K/uL (0.1-1.0); MONOCYTES % (AUTO) 2.9 % (2.0-9.0); NEUTROPHILS # (AUTO) 10.1 K/uL (1.8-7.7); PLATELET COUNT (AUTO) 194 K/uL (150-450); RED BLOOD CELL COUNT(AUTO) 3.45 MIL/uL (4.00-5.20); RED CELL DISTRIBUTION WIDTH 20.1 % (11.5-14.5); WHITE BLOOD COUNT (AUTO) 10.9 K/uL (4.5-11.0)
[2017-09-27 09:52] LABS: NEUTROPHILS % (AUTO) 92.4 % (40.0-70.0)
[2017-09-27] MEDS ORDERED: LEVOFLOXACIN 750 MG/D5% WATER 150 ML IV SCH (10:00)
[2017-09-27 10:06] LABS: ALBUMIN 2.9 g/dL (3.4-5.0); BILIRUBIN,TOTAL 0.7 mg/dL (0.1-1.0); CREATININE 1.73 mg/dL (0.60-1.30); POTASSIUM 4.4 mmol/L (3.5-5.1); TOTAL PROTEIN, SERUM 7.3 g/dL (6.4-8.2)
[2017-09-27 10:36] VITALS: BP 114/58
[2017-09-27 11:37] LABS: RBC MORPHOLOGY COMMENT ABNORMAL RBC MORPH
[2017-09-27 15:29] VITALS: BP 128/75
[2017-09-27 19:45] VITALS: BP 111/59
[2017-09-27 23:20] VITALS: BP 117/73
[2017-09-28] MEDS: MethylPREDNISolone SOD SUCC 125 MG/2 ML VIAL IVP SCH ×3 (00:32→12:09)
[2017-09-28] MEDS: FUROSEMIDE 40 MG/4 ML VIAL IVP SCH ×3 (00:32→16:14)
[2017-09-28] MEDS: LEVALBUTEROL HCL 0.63 MG/3 ML NEB SOLUTION NEB SCH ×4 (03:26→14:56)
[2017-09-28] MEDS: IPRATROPIUM BROMIDE 0.5 MG/2.5 ML NEB SOLUTION NEB SCH ×4 (03:26→14:56)
[2017-09-28 05:18] VITALS: BP 102/50
[2017-09-28] MEDS: LEVOTHYROXINE SODIUM 75 MCG TABLET PO SCH (06:39)
[2017-09-28 07:27] VITALS: BP 118/68
[2017-09-28] MEDS: OXYGEN THERAPY IH SCH (08:21)
[2017-09-28] MEDS: ATORVASTATIN CALCIUM 20 MG TABLET PO SCH (08:22)
[2017-09-28] MEDS: CARVEDILOL 3.125 MG TABLET PO SCH (08:22)
[2017-09-28] MEDS: APIXABAN 2.5 MG TABLET PO SCH (08:22)
[2017-09-28] MEDS: MULTIVITAMINS WITH MINERALS, THERAPEUTIC TABLET PO SCH (08:22)
[2017-09-28] MEDS: BISACODYL 10 MG RECTAL RECTAL SUPPOSITORY PR PRN (09:19)
[2017-09-28 09:21] VITALS: BP 134/84
[2017-09-28] MEDS: LISINOPRIL 20 MG TABLET PO SCH (09:21)
[2017-09-28] MEDS: AMIODARONE HCL 200 MG TABLET PO SCH (09:21)
[2017-09-28 11:28] VITALS: BP 132/61
[2017-09-28 16:02] VITALS: BP 105/58
[2017-09-28] MEDS ORDERED: CARV3 PO (18:00)
[2017-09-28] MEDS ORDERED: IPRNEB IH (18:01)
[2017-09-28] MEDS ORDERED: LEVA0.6319 NEB (18:02)
[2017-09-28] MEDS ORDERED: LEVO750P3 IV (18:03)
[2017-09-28] MEDS ORDERED: LEVO50TA11 PO (18:04)
[2017-09-28] MEDS ORDERED: SM40I IVP (18:09)
== END 2017-09-28 17:25 | disposition short-term general hospital (02) | DRG 291 ==
LOC: EMS 23:26 → 5N 09-24 03:33 → 5S 09-26 20:40
PROVIDERS: ADMIT Internal Medicine; ATTEND Family Medicine
PROC: 0HQ0XZZ Repair Scalp Skin, External Approach (ICD-10-PCS; 2017-09-24)
PROC: 4B02XSZ Measurement of Cardiac Pacemaker, External Approach (ICD-10-PCS; principal; 2017-09-26)
DX: I13.0 Hypertensive heart and chronic kidney disease with heart failure and stage 1 through stage 4 chronic kidney disease, or unspecified chronic kidney disease (principal); J96.00 Acute respiratory failure, unspecified whether with hypoxia or hypercapnia; N18.4 Chronic kidney disease, stage 4 (severe); I50.23 Acute on chronic systolic (congestive) heart failure; W19.XXXA Unspecified fall, initial encounter; E11.22 Type 2 diabetes mellitus with diabetic chronic kidney disease; I42.9 Cardiomyopathy, unspecified; I49.9 Cardiac arrhythmia, unspecified; F41.9 Anxiety disorder, unspecified; I25.10 Atherosclerotic heart disease of native coronary artery without angina pectoris; I48.2 Chronic atrial fibrillation; J20.9 Acute bronchitis, unspecified; R29.6 Repeated falls; S01.01XA Laceration without foreign body of scalp, initial encounter; Z86.14 Personal history of Methicillin resistant Staphylococcus aureus infection; Z90.49 Acquired absence of other specified parts of digestive tract; Z91.81 History of falling; Z95.0 Presence of cardiac pacemaker; Z95.1 Presence of aortocoronary bypass graft; Z95.2 Presence of prosthetic heart valve; Z22.322 Carrier or suspected carrier of Methicillin resistant Staphylococcus aureus; Z88.8 Allergy status to other drugs, medicaments and biological substances; Z88.0 Allergy status to penicillin; Z91.013 Allergy to seafood; Z79.01 Long term (current) use of anticoagulants; Z79.4 Long term (current) use of insulin; Z79.899 Other long term (current) drug therapy; Y93.89 Activity, other specified; Y92.89 Other specified places as the place of occurrence of the external cause; Y99.8 Other external cause status
CPT/HCPCS: 12002; 70450; 71101; 72070; 72100; 72170; 82805; 82962; 83735; 84443; 87081; 93005; 93306; 94640; 94644; 94660; 96374; 97116; 97162; 97530; 99285; J1940; J1956; J2270; J2930; J3490; J7050